=== PATIENT | male | born 1930 | race Caucasian/White ===

== ENCOUNTER 2017-04-04 09:05 | Inpatient (IN) | payer MEDICARE, BC ==
[~2017-04-04] VITALS: Ht 172.7 cm; Wt 91.8 kg
[~2017-04-04 09:05] MED LIST: ATOR10TA9 PO; CALC-316 PO; CAND4TAB PO; CEPH-368 PO; DIGO250T PO; ELEQUIS PO; FOLI-17 PO; METO25TA35 PO; MULT-658 PO; SPIR25TA3 PO; TORS20TA2 PO
[2017-04-04] MEDS ORDERED: ASPIRIN 81 MG TABLET CHEW PO ONE (10:00)
[2017-04-04] MEDS ORDERED: SODIUM CHLORIDE FLUSH 10ML SYR IVF ONE ×2 (10:00→12:30)
[2017-04-04 10:14] LABS: HEMATOCRIT 47.5 % (39.2-51.8); WHITE BLOOD COUNT 10.2 x10^3/uL (3.4-10)
[2017-04-04 10:25] LABS: BLOOD UREA NITROGEN 51 mg/dL (7-18)
[2017-04-04 10:36] LABS: IS PT STATUS REG ER OR PRE ER? YES
[2017-04-04] MEDS ORDERED: ASPIRIN 81 MG TABLET CHEW ONE (10:39)
[2017-04-04] MEDS ORDERED: OMEG-14 PO (10:45)
[2017-04-04] MEDS ORDERED: APIX2.5T PO (10:45)
[2017-04-04] MEDS ORDERED: calcium/mag/zinc (10:45)
[2017-04-04 13:30] VITALS: BP 99/64
[2017-04-04] MEDS ORDERED: POLYETHYLENE GLYCOL 17 GM PACKET PO PRN (16:30)
[2017-04-04] MEDS ORDERED: ACETAMINOPHEN 325 MG TABLET PO PRN (16:30)
[2017-04-04] MEDS ORDERED: ONDANSETRON 2MG/ML, 2ML IVPush PRN (16:30)
[2017-04-04] MEDS ORDERED: BISACODYL 10 MG SUPP PR PRN (16:30)
[2017-04-04] MEDS ORDERED: DOCUSATE 100 MG CAPSULE PO PRN (16:30)
[2017-04-04 17:05] LABS: IS PT STATUS REG ER OR PRE ER? NO
[2017-04-04 19:17] VITALS: BP 96/58
[2017-04-04 19:50] VITALS: BP 94/58
[2017-04-04] MEDS: APIXABAN 2.5 MG TABLET PO SCH (19:56)
[2017-04-04] MEDS: TORSEMIDE 20 MG TABLET PO SCH (19:56)
[2017-04-04] MEDS: FOLIC ACID 1 MG TABLET PO SCH (19:56)
[2017-04-04] MEDS ORDERED: ATORVASTATIN 10 MG TABLET PO SCH (21:00)
[2017-04-04] MEDS ORDERED: METOPROLOL TARTRATE 25 MG TABLET PO SCH (21:00)
[2017-04-04 22:56] LABS: IS PT STATUS REG ER OR PRE ER? NO
[2017-04-05 01:05] VITALS: BP 90/51
[2017-04-05 06:13] LABS: HEMATOCRIT 43.9 % (39.2-51.8); HEMOGLOBIN 14.8 g/dL (13.7-18.0); WHITE BLOOD COUNT 8.8 x10^3/uL (3.4-10)
[2017-04-05 06:26] LABS: ASPARTATE AMINO TRANSFERASE 38 U/L (15-37); BLOOD UREA NITROGEN 42 mg/dL (7-18)
[2017-04-05] MEDS ORDERED: REGADENOSON 0.4 MG/5 ML SYRINGE ONE (08:06)
[2017-04-05] MEDS ORDERED: SPIRONOLACTONE 25 MG TABLET PO SCH (09:00)
[2017-04-05] MEDS ORDERED: VALSARTAN 80 MG TABLET PO SCH (09:00)
[2017-04-05] MEDS ORDERED: MULTIVITAMIN 1 TABLET PO SCH (09:00)
[2017-04-05] MEDS ORDERED: DIGOXIN 0.25 MG TABLET PO SCH (09:00)
[2017-04-05 09:04] VITALS: BP 95/55
[2017-04-05] MEDS: APIXABAN 2.5 MG TABLET PO SCH (09:06)
[2017-04-05] MEDS: FOLIC ACID 1 MG TABLET PO SCH (09:06)
[2017-04-05] MEDS: TORSEMIDE 20 MG TABLET PO SCH (09:07)
[2017-04-05 13:00] VITALS: BP 95/58
[2017-04-05] MEDS ORDERED: DIGO125T PO (16:11)
[2017-04-05] MEDS ORDERED: METO-282 PO (16:52)
[2017-04-06] MEDS ORDERED: DIGOXIN 0.125 MG TABLET PO SCH (09:00)
== END 2017-04-05 17:11 | disposition home or self-care (01) | DRG 683 ==
LOC: ED 11:19 → EDIP 11:26 → 5SO 13:19
PROVIDERS: ADMIT Family Medicine; ATTEND Internal Medicine
DX: N17.9 Acute kidney failure, unspecified (principal); I25.110 Atherosclerotic heart disease of native coronary artery with unstable angina pectoris; J96.10 Chronic respiratory failure, unspecified whether with hypoxia or hypercapnia; D68.69 Other thrombophilia; I50.22 Chronic systolic (congestive) heart failure; E87.1 Hypo-osmolality and hyponatremia; I08.3 Combined rheumatic disorders of mitral, aortic and tricuspid valves; I11.0 Hypertensive heart disease with heart failure; E78.5 Hyperlipidemia, unspecified; I25.2 Old myocardial infarction; I25.5 Ischemic cardiomyopathy; I48.2 Chronic atrial fibrillation; Z79.82 Long term (current) use of aspirin; Z82.49 Family history of ischemic heart disease and other diseases of the circulatory system; Z95.1 Presence of aortocoronary bypass graft; Z87.891 Personal history of nicotine dependence; Z95.810 Presence of automatic (implantable) cardiac defibrillator; Z99.81 Dependence on supplemental oxygen; Z90.49 Acquired absence of other specified parts of digestive tract; Z88.8 Allergy status to other drugs, medicaments and biological substances; I77.819 Aortic ectasia, unspecified site
CPT/HCPCS: 36415; 71010; 78452; 80048; 80053; 80061; 80162; 82040; 84443; 84484; 85025; 85610; 85730; 93005; 93017; 99285; C8929; J2785; A9502; C9898